=== PATIENT | female | born 1965 | race Two or more races ===

== ENCOUNTER 2020-05-21 09:25 | Outpatient (CLI) | payer OTHER ==
[2020-05-24] MEDS ORDERED: ZOLOFT100 MG PO (12:11)
[2020-05-24] MEDS ORDERED: SYNTHROID75 MCG PO (12:11)
[2020-05-24] MEDS ORDERED: CLARITIN5 MG PO (12:12)
[2020-05-24] MEDS ORDERED: BUSPAR PO (12:12)
[2020-05-24] MEDS ORDERED: METFORMIN HCL500 M3 PO (12:13)
[2020-05-24] MEDS ORDERED: IRBESARTAN-HCT1 EACH PO (12:13)
[2020-05-24] MEDS ORDERED: PROTONIX40 MG PO (12:13)
== END 2020-05-21 15:00 | disposition home or self-care (01) ==
LOC: EKG 09:25
PROVIDERS: ATTEND Colon & Rectal Surgery
DX: K64.2 Third degree hemorrhoids (principal); K58.8 Other irritable bowel syndrome; K92.1 Melena; I10 Essential (primary) hypertension

== ENCOUNTER 2020-05-26 08:28 | Day surgery (SDC) | payer OTHER ==
[~2020-05-26 08:28] MED LIST: BUSPAR PO; CLARITIN5 MG PO; IRBESARTAN-HCT1 EACH PO; METFORMIN HCL500 M3 PO; PROTONIX40 MG PO; SYNTHROID75 MCG PO; ZOLOFT100 MG PO
== END 2020-05-26 18:30 | disposition home or self-care (01) ==
LOC: CIR.AMB 08:28 → ADM 11:30 → CIR.AMB 18:30
PROVIDERS: ATTEND Colon & Rectal Surgery
DX: K64.4 Residual hemorrhoidal skin tags (principal); K64.8 Other hemorrhoids; Z20.828 Contact with and (suspected) exposure to other viral communicable diseases

== ENCOUNTER → 2021-05-20 | Day surgery (SDC) | payer OTHER | END | disposition home or self-care (01) | LOC: ADM 05-13 13:15 → AMB-ENDOS 07:37 | PROVIDERS: ATTEND Colon & Rectal Surgery | DX: C20 Malignant neoplasm of rectum (principal); K64.2 Third degree hemorrhoids; Z20.822 Contact with and (suspected) exposure to COVID-19 ==

== ENCOUNTER 2021-10-14 07:54 | Day surgery (SDC) | payer OTHER | END 2021-10-14 14:35 | disposition home or self-care (01) | LOC: AMB-ENDOS 07:54 | PROVIDERS: ATTEND Colon & Rectal Surgery | DX: K62.89 Other specified diseases of anus and rectum (principal); K64.1 Second degree hemorrhoids; Z20.822 Contact with and (suspected) exposure to COVID-19 ==

== ENCOUNTER 2022-07-19 05:52 | Day surgery (SDC) | payer OTHER | END 2022-07-19 09:00 | disposition home or self-care (01) | LOC: AMB-ENDOS 05:52 | PROVIDERS: ATTEND Colon & Rectal Surgery | DX: K62.7 Radiation proctitis (principal); Z20.822 Contact with and (suspected) exposure to COVID-19; Z85.89 Personal history of malignant neoplasm of other organs and systems; K64.1 Second degree hemorrhoids; I10 Essential (primary) hypertension; Z88.8 Allergy status to other drugs, medicaments and biological substances; E11.9 Type 2 diabetes mellitus without complications ==